=== PATIENT | male | born 1935 | race Two or more races ===

== ENCOUNTER 2017-09-25 07:51 | Outpatient (CLI) | payer OTHER | END 2017-09-25 07:58 | disposition home or self-care (01) | LOC: SONOGRAMA 07:51 | DX: N20.0 Calculus of kidney (principal) ==

== ENCOUNTER 2018-02-16 08:50 | Outpatient (CLI) | payer OTHER | END 2018-02-16 08:51 | disposition home or self-care (01) | LOC: SONOGRAMA 08:50 | DX: M72.2 Plantar fascial fibromatosis (principal) ==

== ENCOUNTER 2018-08-27 14:02 | Outpatient (CLI) | payer OTHER | END 2018-08-27 14:05 | disposition home or self-care (01) | LOC: NUCLEAR 14:02 | DX: R53.83 Other fatigue (principal); R07.89 Other chest pain; R94.31 Abnormal electrocardiogram [ECG] [EKG] ==

== ENCOUNTER 2020-08-16 13:35 | Outpatient (CLI) | payer OTHER | END 2020-08-16 13:36 | disposition home or self-care (01) | LOC: NUCLEAR 13:35 | PROVIDERS: ATTEND Internal Medicine Sports Medicine | DX: M81.0 Age-related osteoporosis without current pathological fracture (principal) ==

== ENCOUNTER 2020-08-20 07:46 | Outpatient (CLI) | payer OTHER | END 2020-08-24 15:20 | disposition home or self-care (01) | LOC: SONOGRAMA 07:46 | PROVIDERS: ATTEND Pathology Anatomic Pathology & Clinical Pathology | DX: D34 Benign neoplasm of thyroid gland (principal); R22.2 Localized swelling, mass and lump, trunk; E04.8 Other specified nontoxic goiter ==

== ENCOUNTER 2020-12-05 14:36 | Outpatient (CLI) | payer OTHER | END 2020-12-05 14:42 | disposition home or self-care (01) | LOC: RAD 14:36 | PROVIDERS: ATTEND Physical Medicine & Rehabilitation | DX: M25.511 Pain in right shoulder (principal) ==

== ENCOUNTER 2022-06-25 10:54 | Outpatient (CLI) | payer OTHER | END 2022-06-25 10:59 | disposition home or self-care (01) | LOC: RAD 10:54 | PROVIDERS: ATTEND Internal Medicine Sports Medicine | DX: R06.09 Other forms of dyspnea (principal); R06.02 Shortness of breath; R05.8 Other specified cough ==